=== PATIENT | female | born 1980 | race Caucasian/White ===

== ENCOUNTER 2021-07-26 13:29 | Emergency (ER) | payer SELFPAY ==
[~2021-07-26] VITALS: Ht 170.2 cm; Wt 84.4 kg
[2021-07-26 14:07] LABS: BASOPHILS # (AUTO) 0.1 (0.0-0.1); BASOPHILS % 0.7 % (0.0-1.0); EOSINOPHILS % 0.3 % (0.0-6.0); HEMATOCRIT 41.2 % (34.2-44.1); HEMOGLOBIN 13.9 g/dL (12.0-16.0); LYMPHOCYTES # (AUTO) 2.7 (1.0-3.2); LYMPHOCYTES % 23.5 % (18.0-39.1); MEAN CORPUSCULAR HEMOGLOBIN 33.3 pg (28-32); MEAN CORPUSCULAR HGB CONC 33.7 g/dL (31-35); MEAN CORPUSCULAR VOLUME 98.8 fL (81-99); MONOCYTES # (AUTO) 0.6 (0.2-0.8); MONOCYTES % 4.8 % (4.4-11.3); NEUTROPHILS % 70.3 % (38.7-80.0); PLATELET COUNT 344 x10e3/uL (140-360); RED BLOOD COUNT 4.17 x10e6/uL (3.6-5.1)
[2021-07-26] MEDS ORDERED: LORAZEPAM 1 MG TAB PO ONE (14:15)
[2021-07-26 14:23] LABS: ALBUMIN 3.9 g/dL (3.5-5.0); ALBUMIN/GLOBULIN RATIO 1.2 (0.8-2.0); ANION GAP 11.5 mmol/L (8-16); CALCIUM 9.2 mg/dL (8.4-10.2); CREATININE, SERUM 0.78 mg/dL (0.57-1.11); POTASSIUM 4.5 mmol/L (3.5-5.1)
[2021-07-26 14:30] VITALS: BP 137/67
[2021-07-26 14:55] LABS: FREE THYROXINE INDEX 1.9782 (1.4-3.8); HCG,QUANTITATIVE < 1.20 mIU/mL (0-10); THYROID STIMULATING HORMONE 0.219 uIU/mL (0.350-4.940)
== END 2021-07-26 14:30 | disposition home or self-care (01) ==
LOC: ER 13:34
DX: R00.2 Palpitations (principal); R10.13 Epigastric pain; R94.31 Abnormal electrocardiogram [ECG] [EKG]; I25.2 Old myocardial infarction; F17.210 Nicotine dependence, cigarettes, uncomplicated
CPT/HCPCS: 36415; 70450; 71045; 80053; 84436; 84443; 84479; 84484; 84702; 85025; 85379; 93005; 99284